=== PATIENT | female | born 1995 | race Caucasian/White ===

== ENCOUNTER 2018-09-04 12:40 | Emergency (ER) | payer OTHER ==
[~2018-09-04] VITALS: Ht 160 cm; Wt 54.5 kg
[2018-09-04] MEDS ORDERED: LITH300C PO (12:52)
[2018-09-04] MEDS ORDERED: INDE60CA4 PO (12:53)
[2018-09-04] MEDS ORDERED: JUNETAB PO (12:53)
[2018-09-04] MEDS ORDERED: PRIL20TA2 PO (12:54)
[2018-09-04] MEDS ORDERED: ZOFR4TAB16 PO (12:54)
[2018-09-04 14:14] LABS: BASO # 0.1 10^3/uL (0.0-0.2); BASO % 0.6 % (0.0-1.0); EOS % 0.4 % (0.0-3.0); HEMATOCRIT 40.6 % (36.0-47.0); HEMOGLOBIN 13.2 g/dl (12.0-15.5); LYMPH # 1.5 10^3/uL (1.5-6.5); MEAN CORPUSCULAR HEMOGLOBIN 30.1 pg (27.0-33.0); MEAN CORPUSCULAR HGB CONC 32.5 g/dl (32.0-36.5); MEAN CORPUSCULAR VOLUME 92.7 fl (80.0-96.0); MONO # 0.7 10^3/uL (0.0-0.8); MONO % 7.7 % (0.0-5.0); NEUTROPHILS # 6.3 10^3/uL (1.8-7.7); NEUTROPHILS % 73.9 % (36.0-66.0); PLATELET COUNT, AUTOMATED 334 10^3/uL (150-450); RED BLOOD COUNT 4.38 10^6/uL (4.00-5.40); WHITE BLOOD COUNT 8.6 10^3/uL (4.0-10.0)
--- NOTE | 2018-09-04 14:40 | REP ---
Abdominal right upper quadrant ultrasound for nausea and vomiting in the morning's. The patient is not . There is a negative Jordan's sign. There is no cholelithiasis, gallbladder wall thickening or pericholecystic fluid. There is no intrahepatic or extrahepatic biliary duct dilatation. The common biliary duct measures 4 mm in diameter. The hepatic parenchyma is homogeneous and otherwise unremarkable. There are no hepatic masses. The visualized hepatic parenchyma is unremarkable. There is no right renal hydronephrosis, calculus, mass or cyst. Right kidney measures 10.5 x 5.5 x 3.9 cm and is normal size. There is no right upper quadrant ascites. Impression: There is no cholelithiasis. The gallbladder and biliary ducts are otherwise unremarkable. Otherwise, negative abdominal right upper quadrant ultrasound. Electronically Signed by Jorge Figueredo MD 09/04/2018 02:31 P
[2018-09-04 14:41] LABS: ALBUMIN 4.2 GM/DL (3.2-5.2); ALT/SGPT 21 U/L (12-78); AMYLASE 66 U/L (25-115); BILIRUBIN,TOTAL 0.7 MG/DL (0.2-1.0); BLOOD UREA NITROGEN 13 MG/DL (7-18); CALCIUM LEVEL 9.1 MG/DL (8.5-10.1); CARBON DIOXIDE LEVEL 27 MEQ/L (21-32); CHLORIDE LEVEL 108 MEQ/L (98-107); CREATININE FOR GFR 0.81 MG/DL (0.55-1.30); GLOMERULAR FILTRATION RATE > 60.0 (>60); GLUCOSE, FASTING 86 MG/DL (70-100); LIPASE 114 U/L (73-393); POTASSIUM SERUM 4.2 MEQ/L (3.5-5.1); SODIUM LEVEL 140 MEQ/L (136-145); TOTAL PROTEIN 7.5 GM/DL (6.4-8.2)
[2018-09-04 15:43] VITALS: BP 130/91
== END 2018-09-04 16:18 | disposition home or self-care (01) ==
LOC: M ED 12:40
DX: R11.2 Nausea with vomiting, unspecified (principal); R10.9 Unspecified abdominal pain; F41.9 Anxiety disorder, unspecified; F32.9 Major depressive disorder, single episode, unspecified; Z79.899 Other long term (current) drug therapy

== ENCOUNTER → 2018-11-13 | Outpatient (REF) | payer OTHER ==
[~2018-11-13] MED LIST: INDE60CA4 PO; JUNETAB PO; LITH300C PO; PRIL20TA2 PO; ZOFR4TAB16 PO
== END ==
LOC: M LAB REF 17:31
PROVIDERS: ATTEND Advanced Practice Midwife
DX: Z12.4 Encounter for screening for malignant neoplasm of cervix (principal)